=== PATIENT | female | born 1980 | race Caucasian/White ===

== ENCOUNTER 2017-02-09 11:05 | Emergency (ER) | payer MEDICAID, OTHER ==
[~2017-02-09] VITALS: Wt 84.1 kg
[~2017-02-09 11:05] MED LIST: PREN1TAB49 PO
[2017-02-09] MEDS ORDERED: TETRACAINE 0.5% 4 ML OPH LEFT EYE ONE (13:30)
[2017-02-09] MEDS ORDERED: DIPHTH/TET/ACEL PERTUSS (ADULT) 0.5 ML VIAL IM* ONE (13:30)
[2017-02-09] MEDS ORDERED: ERYT1OIN6 OP (13:30)
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
== END 2017-02-09 13:40 | disposition home or self-care (01) ==
LOC: FTE 11:05
DX: T15.02XA Foreign body in cornea, left eye, initial encounter (principal); X58.XXXA Exposure to other specified factors, initial encounter; Y92.9 Unspecified place or not applicable; Z23 Encounter for immunization
CPT/HCPCS: 65220; 90471; 90715; Z7502; Z7610